=== PATIENT | female | born 1960 | race Caucasian/White ===

== ENCOUNTER 2018-08-04 12:38 | Day surgery (SDC) | payer OTHER ==
[2018-08-01 16:01] VITALS: BMI 33.0
[2018-08-04] MEDS ORDERED: MIDAZOLAM HCL 2 MG/2 ML SINGLE DOSE VIAL ONE ×2 (14:24→16:33)
[2018-08-04] MEDS ORDERED: PROPOFOL 20 ML ONE (14:24)
[2018-08-04] MEDS ORDERED: LIDOCAINE HCL/PF 2% SDV 5ML VIAL ONE (14:28)
[2018-08-04] MEDS ORDERED: ceFAZolin SODIUM 1 GM VIAL ONE (14:51)
[2018-08-04] MEDS ORDERED: oxyCODONE HCL 5 MG TABLET PO PRN (15:23)
[2018-08-04] MEDS ORDERED: ONDANSETRON 4 MG/2 ML VIAL IVPUSH PRN ×2 (15:23→17:08)
[2018-08-04] MEDS ORDERED: LACTATED RINGERS SOLUTION 1,000 ML IV SCH ×2 (15:30→17:15)
[2018-08-04] MEDS ORDERED: BUPIVACAINE HCL/EPINEPHRINE/PF 30 ML VIAL IJ ONE (15:36)
[2018-08-04] MEDS ORDERED: HYDROmorphone HCL/PF 1 MG/ML AMP ONE ×2 (16:37→16:39)
[2018-08-04] MEDS ORDERED: ZOLPIDEM TARTRATE 5 MG TABLET PO PRN (16:56)
[2018-08-04] MEDS ORDERED: PROMETHAZINE HCL 25 MG/1 ML VIAL IVPUSH PRN (16:59)
[2018-08-04] MEDS ORDERED: MIDAZOLAM HCL 2 MG/2 ML SINGLE DOSE VIAL IVPUSH ONE (17:01)
[2018-08-04] MEDS ORDERED: HYDROmorphone HCl 2 MG/ML VIAL IVPUSH ONE (17:01)
--- NOTE | 2018-08-04 17:01 | OP ---
Operative Note - Note: Operative Date: 08/04/18 Pre-Operative Diagnosis: Right knee mass Operation: I&D right knee Post-Operative Diagnosis: Same as Pre-op Surgeon: Nic Freed Die Maker Stamping: Lawrence Freed Anesthesiologist/DOCKING PILOT: Sukh Patel Anesthesia: General Specimens Removed: Right thigh tissue Estimated Blood Loss (mls): 50 Fluid Volume Replaced (mls): 1,000 (Crystalloid) Operative Report Dictated: Yes
[2018-08-04] MEDS ORDERED: KETOROLAC TROMETHAMINE 30 MG/1 ML VIAL IVPUSH PRN (17:07)
--- NOTE | 2018-08-04 17:07 | PN ---
Progress Note (short form) - Note Progress Note: 58F s/p I&D right knee POD #0. -Admit for 23 hour satellite admission. -Pain control: Percocet, Duexis ordered to patient's pharmacy. -Incentive spirometry. -DVT PPx: -Chemical: 81mg PO qD x 6 weeks post-op. -Mechanical: KACI's, SCD's. -PT/OT/Rehab, OOB. -WBAT RLE. -f/u post-op trial of void. -Diet as tolerated. -Cane vs crutches. -Discharge planning: home tomorrow 08/05/2018. -f/u [facility] [place] office 08/11/2018; call for appointment; [phone]. Nic Freed MD (Orthopaedic Surgery).
[2018-08-04] MEDS ORDERED: MAGNESIUM HYDROX 2400MG/30ML ORAL SUSPENSION 30 ML CUP PO PRN (17:08)
[2018-08-04] MEDS ORDERED: MAG HYDROX/AL HYDROX/SIMETH 30 ML UNIT-DOSE CUP PO PRN (17:08)
[2018-08-04] MEDS ORDERED: KETOROLAC TROMETHAMINE 30 MG/1 ML VIAL ONE (17:28)
--- NOTE | 2018-08-04 18:03 | CONSULT ---
Consultation: REQUESTING PROVIDER: Dr. Freed CONSULT REQUEST: We have been asked to medically evaluate this patient for post- operative pain management. HISTORY OF PRESENT ILLNESS 58 year-old female with a PMH significant for asthma, right knee replacement with multiple revisions (2011, 2015, 2016), and right knee mass s/p I&D today with Dr. Freed. REVIEW OF SYSTEMS: CONSTITUTIONAL: Absent: fever, chills, diaphoresis, generalized weakness, malaise, loss of appetite, weight change HEENT: Absent: rhinorrhea, nasal congestion, throat pain, throat swelling, difficulty swallowing, mouth swelling, ear pain, eye pain, visual changes CARDIOVASCULAR: Absent: chest pain, syncope, palpitations, irregular heart rate, lightheadedness , peripheral edema RESPIRATORY: Absent: cough, shortness of breath, dyspnea with exertion, orthopnea, wheezing, stridor, hemoptysis GASTROINTESTINAL: Absent: abdominal pain, abdominal distension, nausea, vomiting, diarrhea, constipation, melena, hematochezia GENITOURINARY: Absent: dysuria, frequency, urgency, hesitancy, hematuria, flank pain, genital pain MUSCULOSKELETAL: +knee pain Absent: myalgia, arthralgia, joint swelling, back pain, neck pain SKIN: Absent: rash, itching, pallor HEMATOLOGIC/IMMUNOLOGIC: Absent: easy bleeding, easy bruising, lymphadenopathy, frequent infections ENDOCRINE: Absent: unexplained weight gain, unexplained weight loss, heat intolerance, cold intolerance NEUROLOGIC: Absent: headache, focal weakness or paresthesias, dizziness, unsteady gait, seizure, mental status changes, bladder or bowel incontinence PSYCHIATRIC: Absent: anxiety, depression, suicidal or homicidal ideation, hallucinations. PHYSICAL EXAMINATION Vital Signs - 24 hr 08/04/18 08/04/18 08/04/18 13:01 16:45 16:50 Temperature 98.3 F 98.2 F Pulse Rate 93 H 94 H 93 H Respiratory 19 22 H 21 H Rate Blood Pressure 114/63 132/88 105/68 O2 Sat by Pulse 96 99 99 Oximetry (%) 08/04/18 08/04/18 08/04/18 16:55 17:00 17:05 Temperature Pulse Rate 95 H 89 87 Respiratory 23 H 21 H 20 Rate Blood Pressure 118/60 100/62 93/52 L O2 Sat by Pulse 99 100 100 Oximetry (%) 08/04/18 17:20 Temperature 98 F Pulse Rate 88 Respiratory 21 H Rate Blood Pressure 92/51 L O2 Sat by Pulse 98 Oximetry (%) GENERAL: Awake, alert, and fully oriented, in no acute distress. HEAD: Normal with no signs of trauma. EYES: Pupils equal, round and reactive to light, extraocular movements intact, sclera anicteric, conjunctiva clear. No lid lag. EARS, NOSE, THROAT: Ears normal, nares patent, oropharynx clear without exudates. Moist mucous membranes. NECK: Normal range of motion, supple without lymphadenopathy, JVD, or masses. LUNGS: Breath sounds equal, clear to auscultation bilaterally. No wheezes, and no crackles. No accessory muscle use. HEART: Regular rate and rhythm, normal S1 and S2 without murmur, rub or gallop. ABDOMEN: Soft, nontender, not distended, normoactive bowel sounds, no guarding, no rebound, no masses. No hepatomegaly or splenomegaly. MUSCULOSKELETAL: Normal range of motion at all joints. No bony deformities or tenderness. No CVA tenderness. UPPER EXTREMITIES: 2+ pulses, warm, well-perfused. No cyanosis. No clubbing. Cap refill <2 seconds. No peripheral edema. LOWER EXTREMITIES: 2+ pulses, warm, well-perfused. No calf tenderness. No peripheral edema. NEUROLOGICAL: Cranial nerves II-XII intact. Normal speech. Normal gait. PSYCHIATRIC: Cooperative. Good eye contact. Appropriate mood and affect. SKIN: Warm, dry, normal turgor, no rashes or lesions noted. Current Medications Generic Name Dose Route Start Last Admin Trade Name Freq PRN Reason Stop Dose Admin Al Hydroxide/Mg Hydroxide 30 ml 08/04/18 17:08 Mylanta Oral Suspension - PO Q4H PRN DYSPEPSIA Aspirin 81 mg 08/05/18 08:00 Asa - PO DAILY@0800 LATANYA Clonazepam 1.5 mg 08/04/18 16:56 Klonopin - PO DAILY PRN ANXIETY Lactated Ringer's 1,000 mls @ 125 mls/hr 08/04/18 17:15 Lactated Ringers Solution IV 08/05/18 06:00 ASDIR LATANYA Ketorolac Tromethamine 30 mg 08/04/18 17:07 08/04/18 17:25 Toradol Injection - IVPUSH 08/05/18 17:06 30 mg Q8H PRN Administration PAIN LEVEL 6-10 Magnesium Hydroxide 30 ml 08/04/18 17:08 Milk Of Magnesia - PO PRN PRN CONSTIPATION Morphine Sulfate 30 mg 08/04/18 18:00 Msir - PO QID LATANYA Ondansetron HCl 4 mg 08/04/18 17:08 Zofran Injection IVPUSH Q6H PRN NAUSEA Oxycodone HCl 5 mg 08/04/18 15:23 Roxicodone - PO Q4H PRN PAIN LEVEL 1-5 Oxycodone HCl 10 mg 08/04/18 15:23 Roxicodone - PO Q4H PRN PAIN LEVEL 6-10 Pantoprazole Sodium 40 mg 08/05/18 10:00 Protonix - PO DAILY LATANYA Promethazine HCl 12.5 mg 08/04/18 16:59 Phenergan Injection - IVPUSH Q4H PRN NAUSEA AND/OR VOMITING Senna/Docusate Sodium 1 tablet 08/04/18 22:00 Pericolace - PO BID LATANYA Zolpidem Tartrate 10 mg 08/04/18 16:56 Ambien - PO HS PRN INSOMNIA ASSESSMENT/PLAN: 58 year-old female with a PMH significant for asthma, right knee replacement with multiple revisions (2011, 2015, 2016), and right knee mass s/p I&D today with Dr. Freed. Right knee replacement with multiple revisions Right knee mass s/p I&D --POD #0 --perioperative antibiotics as per surgery; cefazolin given in OR --pain management: continue home dosing of PO morphine, toradol PRN, oxycodone PRN --bowel regimen --incentive spirometry --post-op trial of void, if no UOP in [address] Freed Asthma --stable FEN Fluids: LR@125mL/hr Electrolytes: replete as indicated Nutrition: regular diet DVT prophylaxis: OOB, ambulation, SCDs, TEDs, ASA 81mg daily x 6 weeks Dispo: We will continue to follow the patient. Thank you for this consultative opportunity. Visit type - Emergency Visit Emergency Visit: Yes Care time: The patient presented to the Emergency Department on the above date and was hospitalized for further evaluation of their emergent condition. - New Patient This patient is new to me today: Yes Date on this admission: 08/06/18 - Critical Care Critical Care patient: No
[2018-08-04] MEDS: morphine SULFATE IMMEDIATE RELEASE 30 MG TAB PO SCH ×2 (18:49→21:24)
[2018-08-04] MEDS: oxyCODONE HCL 5 MG TABLET PO PRN (20:19)
[2018-08-04] MEDS ORDERED: SILVER SULFADIAZINE 1% TOP CREAM 50 GM JAR TP ONE (20:37)
[2018-08-04] MEDS: SENNOSIDES/DOCUSATE COMBO (SENNA PLUS) TABLET (UD) PO SCH (21:26)
[2018-08-05] MEDS: clonazePAM 0.5 MG TABLET PO PRN ×2 (00:04→09:28)
[2018-08-05] MEDS: ALBUTEROL SO4 8 GM HFA INHALER IH PRN ×2 (01:22→05:04)
[2018-08-05] MEDS: oxyCODONE HCL 5 MG TABLET PO PRN (05:01)
[2018-08-05] MEDS ORDERED: PT OWN MED DRAWER 7, Y5N ONE ×2 (05:03→10:29)
[2018-08-05 06:14] VITALS: BP 104/53; PULSE 90; TEMP 98
[2018-08-05] MEDS ORDERED: ALBUTEROL SO4 0.083% IH SOL 2.5 MG/3 ML VIAL.NEB. NEB ONE (07:30)
[2018-08-05] MEDS ORDERED: ACETAMINOPHEN 325 MG TABLET (FP) PO PRN (07:57)
[2018-08-05] MEDS ORDERED: ASPIRIN 325 MG TABLET PO SCH (08:00)
[2018-08-05 08:35] LABS: HEMATOCRIT 35.1 % (32.4-45.2); HEMOGLOBIN 11.4 GM/dl (10.7-15.3); MCH 29.4 pg (25.7-33.7); MCHC 32.6 g/dl (32.0-36.0); MEAN CELL VOLUME 90.3 fl (80-96); MEAN PLT VOLUME 9.4 fl (7.5-11.1); PLATELET COUNT 234 K/MM3 (134-434); RBC 3.88 M/mm3 (3.60-5.2); RDW 12.6 % (11.6-15.6); WHITE BLOOD COUNT 13.3 K/mm3 (4.0-10.8)
[2018-08-05 08:41] LABS: ANION GAP 8 MMOL/L (8-16); BLOOD UREA NITROGEN 12 mg/dl (7-18); CALCIUM 8.8 mg/dl (8.5-10); CHLORIDE 102 mmol/L (98-107); CO2 27 mmol/L (21-32); CREATININE 0.6 mg/dl (0.55-1.3); GLUCOSE,RANDOM 199 mg/dl (74-106); POTASSIUM 4.3 mmol/L (3.5-5.1); SODIUM 137 mmol/L (136-145)
[2018-08-05] MEDS: SENNOSIDES/DOCUSATE COMBO (SENNA PLUS) TABLET (UD) PO SCH (09:28)
[2018-08-05] MEDS: morphine SULFATE IMMEDIATE RELEASE 30 MG TAB PO SCH (09:28)
--- NOTE | 2018-08-05 09:39 | OP ---
DATE OF OPERATION: DATE OF DICTATION: 08/04/2018 SURGEON: Nic Freed MD PIPELINE MAINTENANCE SUPERVISOR: Lawrence Freed MD PREOPERATIVE DIAGNOSIS: Mass, right distal lateral thigh that is the lateral part of the suprapatellar pouch of his previous revision total knee arthroplasty site with disfiguring scar. POSTOPERATIVE DIAGNOSIS: Mass, right distal lateral thigh that is the lateral part of the suprapatellar pouch of his previous revision total knee arthroplasty site with disfiguring scar. OPERATION PERFORMED: 1. Scar revision. 2. Resection of soft tissue tumor on the lateral side of the distal lateral thigh. ANTIBIOTICS GIVEN: Kefzol 2 g. OPERATION IN DETAIL: After the patient correctly identified brought to the operating room. Right lower extremity was prepped and draped in the routine manner with Betadine scrub solution, wiped off with alcohol, DuraPrep applied. A bloodless field was applied with the Esmarch bandage only tied to the level of the proximal tibia. The original scar which extended as a routine revision scar was an ugly unsightly scar, but I elected to only revise the scar just distal to the inferior part of the patella because of the mobility of the skin and soft tissues. If I excised the scar tissue distal to this point I would have had excessive tension and wound problems. The excision of the scar enabled me to raise a flap laterally to inspect the tissues of the subcutaneous tissues as well as the vastus lateralis muscle. My findings were thickened fat which I was not quite sure if this was pathological or not, but because of the mass effect and the tumorous bulbous lesion that was noted I elected to debulk the area with a wide resection of subcutaneous tissue in this area but keeping a thick remaining subcutaneous flap because of my fear of the angiosomes in this area and blood loss with associated skin breakdown. The tissues were sent to the lab for histopathology. The tissues were reinspected very carefully and no definitive mass was noted. This included deep palpation of the vastus lateralis muscle right down to the bone bed and I performed a full exam of this knee under anesthesia which appeared to be clinically uncomplicated. The wounds were then thoroughly lavaged. Closure was as follows: Subcutaneous tissue 1 Vicryl, skin 3-0 Monocryl with Steri-Strips. Hemostasis was achieved. By the time we left the operating room the wound was dry and a bulky dressing was applied. We await confirmation of histopathology. The patient will be admitted overnight for a 23-hour stay due to pain and for wound evaluation. MD SORAYA Patel/[id number]
--- NOTE | 2018-08-05 09:40 | PN ---
Physical Exam: SUBJECTIVE: Patient seen and examined, pt for DC this morning, pain better controlled, denies sob, chest pain. OBJECTIVE: Vital Signs Period Temp Pulse Resp BP Sys/Hernandez Pulse Ox Last 24 Hr 98 F-98.5 F 83-98 16-23 92-132/51-88 96-100 GENERAL: The patient is awake, alert, and fully oriented, in no acute distress. HEAD: Normal with no signs of trauma. EYES: PERRL, extraocular movements intact, sclera anicteric, conjunctiva clear. No ptosis. ENT: Ears normal, nares patent, oropharynx clear without exudates, moist mucous membranes. NECK: Trachea midline, full range of motion, supple. LUNGS: Breath sounds equal, clear to auscultation bilaterally, no wheezes, no crackles, no accessory muscle use. HEART: Regular rate and rhythm, S1, S2 without murmur, rub or gallop. ABDOMEN: Soft, nontender, nondistended, normoactive bowel sounds, no guarding, no rebound, no hepatosplenomegaly, no masses. EXTREMITIES: 2+ pulses, warm, well-perfused, no edema. NEUROLOGICAL: Cranial nerves II through XII grossly intact. Normal speech, gait not observed. PSYCH: Normal mood, normal affect. SKIN: Warm, dry, normal turgor, no rashes or lesions noted Laboratory Results - last 24 hr 08/05/18 08/05/18 07:03 07:03 WBC 13.3 H RBC 3.88 Hgb 11.4 Hct 35.1 MCV 90.3 MCH 29.4 MCHC 32.6 RDW 12.6 Plt Count 234 MPV 9.4 Sodium 137 Potassium 4.3 Chloride 102 Carbon Dioxide 27 Anion Gap 8 BUN 12 Creatinine 0.6 Creat Clearance w eGFR > 60 Random Glucose 199 H Calcium 8.8 Active Medications Generic Name Dose Route Start Last Admin Trade Name Freq PRN Reason Stop Dose Admin Acetaminophen 650 mg 08/05/18 07:57 08/05/18 08:29 Tylenol - PO 650 mg Q6H PRN Administration PAIN LEVEL 4 - 6 Al Hydroxide/Mg Hydroxide 30 ml 08/04/18 17:08 Mylanta Oral Suspension - PO Q4H PRN DYSPEPSIA Albuterol Sulfate 2 puff 08/05/18 01:17 08/05/18 05:04 Ventolin Hfa Inhaler - IH 2 puff Q4H PRN Administration SHORTNESS OF BREATH Aspirin 81 mg 08/05/18 08:00 08/05/18 08:28 Asa - PO 81 mg DAILY@0800 LATANYA Administration Clonazepam 1.5 mg 08/04/18 16:56 08/05/18 09:28 Klonopin - PO 1.5 mg DAILY PRN Administration ANXIETY Ketorolac Tromethamine 30 mg 08/04/18 17:07 08/04/18 17:25 Toradol Injection - IVPUSH 08/05/18 17:06 30 mg Q8H PRN Administration PAIN LEVEL 6-10 Magnesium Hydroxide 30 ml 08/04/18 17:08 Milk Of Magnesia - PO PRN PRN CONSTIPATION Morphine Sulfate 30 mg 08/04/18 18:00 08/05/18 09:28 Msir - PO 30 mg QID LATANYA Administration Ondansetron HCl 4 mg 08/04/18 17:08 Zofran Injection IVPUSH Q6H PRN NAUSEA Oxycodone HCl 5 mg 08/04/18 15:23 Roxicodone - PO Q4H PRN PAIN LEVEL 1-5 Oxycodone HCl 10 mg 08/04/18 15:23 08/05/18 05:01 Roxicodone - PO 10 mg Q4H PRN Administration PAIN LEVEL 6-10 Pantoprazole Sodium 40 mg 08/05/18 10:00 08/05/18 09:28 Protonix - PO 40 mg DAILY LATANYA Administration Promethazine HCl 12.5 mg 08/04/18 16:59 Phenergan Injection - IVPUSH Q4H PRN NAUSEA AND/OR VOMITING Senna/Docusate Sodium 1 tablet 08/04/18 22:00 08/05/18 09:28 Pericolace - PO 1 tablet BID LATANYA Administration Zolpidem Tartrate 10 mg 08/04/18 16:56 08/04/18 21:26 Ambien - PO 10 mg HS PRN Administration INSOMNIA ASSESSMENT/PLAN: 58 year-old female with a PMH significant for asthma, right knee replacement with multiple revisions (2011, 2015, 2016), and right knee mass s/p I&D today with Dr. Freed. Right knee replacement with multiple revisions Right knee mass s/p I&D --POD #1 --perioperative antibiotics as per surgery; cefazolin given in OR --pain management: continue home dosing of PO morphine, toradol PRN, oxycodone PRN --bowel regimen --incentive spirometry Asthma --stable DVT prophylaxis: OOB, ambulation, SCDs, TEDs, ASA 81mg daily x 6 weeks Visit type - Emergency Visit Emergency Visit: Yes Care time: The patient presented to the Emergency Department on the above date and was hospitalized for further evaluation of their emergent condition. - New Patient This patient is new to me today: Yes Date on this admission: 08/05/18 - Critical Care Critical Care patient: No - Discharge Referral Referred to [facility] Med P.C.: No
[2018-08-05] MEDS ORDERED: PANTOPRAZOLE 40 MG TABLET (FP) PO SCH (10:00)
--- NOTE | 2018-08-10 09:21 | PATH ---
Surgical Pathology Report Patient Name: DEBORA FUNK [facility]. Rec. #: [id number] /Age/Gender: 1960 (Age: 58) / F Account: [id number] Location: [facility] Taken: 08/04/2018 Received: 08/04/2018 Reported: 08/10/2018 Physicians: Nic Freed M.D. Specimen(s) Received A: RIGHT LATERAL THIGH SUBCUTANEOUS TISSUE B: OLD SCARE RIGHT KNEE Clinical History Swelling right knee Final Diagnosis A. RIGHT LATERAL THIGH SUBCUTANEOUS TISSUE, EXCISION: FIBROADIPOSE TISSUE AND ATTACHED SMALL FRAGMENT OF SKELETAL MUSCLE SHOWING FOCAL FOREIGN BODY TYPE MULTINUCLEATED GIANT CELLS REACTION. B. OLD SCAR, RIGHT KNEE, EXCISION: SEGMENT OF SKIN WITH SCAR AND FOREIGN BODY TYPE MULTINUCLEATED GIANT CELLS REACTION. Electronically Signed Amor Flanagan M.D. Gross Description A. Received in formalin labeled "right lateral thigh subcutaneous tissue," are 3 jimenez-yellow, irregular, unoriented portions of fibroadipose tissue ranging from 2.5 x 1.5 x 0.6 cm to 5.3 x 2.5 x 1.0 cm. Sectioning reveals yellow, lobulated adipose tissue. Sas Etl Developer sections are submitted in 2 cassettes with the largest portion in cassette 1. B. Received in formalin labeled "old scar right knee," is a 15.2 x 2.0 cm jimenez, elliptical, unoriented portion of skin excised to a depth of 1.0 cm. The epidermal surface displays a central, linear, healed scar. Sas Etl Developer sections are submitted in one cassette. 08/08/201808/08/2018
== END 2018-08-05 11:00 | disposition home or self-care (01) ==
LOC: FASU 12:38 → FM/S 18:02 → FASU 08-05 11:00
PROVIDERS: ATTEND Orthopaedic Surgery Orthopaedic Surgery of the Spine
PROC: 0HQHXZZ Repair Right Upper Leg Skin, External Approach (ICD-10-PCS; 2018-08-04)
PROC: 0HBHXZX Excision of Right Upper Leg Skin, External Approach, Diagnostic (ICD-10-PCS; 2018-08-04)
PROC: 0KBQ0ZZ Excision of Right Upper Leg Muscle, Open Approach (ICD-10-PCS; principal; 2018-08-04 14:15)
DX: M27.1 Giant cell granuloma, central (principal); L90.5 Scar conditions and fibrosis of skin
CPT/HCPCS: 36415; 80048; 85027; 88304-TC; 94640; 94760